=== PATIENT | male | born 1950 ===

== ENCOUNTER 2017-06-17 08:50 | Day surgery (SDC) | payer BC ==
[2017-06-17 09:59] VITALS: BMI 29.2
[2017-06-17] MEDS ORDERED: Propofol 10 mg/ml Inj (20 ML) ONE ×2 (11:13→11:35)
[2017-06-17] MEDS ORDERED: Lactated Ringer's 500 ML IV ONE ×2 (11:18)
[2017-06-17] MEDS ORDERED: Lactated Ringer's 500 ML IV SCH (11:30)
[2017-06-17 15:29] VITALS: TEMP 97.2
[2017-06-17 15:31] VITALS: BP 94/63
[2017-06-17 15:34] VITALS: PULSE 63; RESP 18; O2SAT 98
== END 2017-06-17 13:00 | disposition home or self-care (01) ==
LOC: C.ENDO 08:50
PROVIDERS: ATTEND Internal Medicine Gastroenterology
DX: K29.50 Unspecified chronic gastritis without bleeding (principal); K44.9 Diaphragmatic hernia without obstruction or gangrene; B96.81 Helicobacter pylori [H. pylori] as the cause of diseases classified elsewhere
CPT/HCPCS: 43239; 88305; J2704; J7120